=== PATIENT | female | born 1930 | race Caucasian/White ===

== ENCOUNTER → 2017-05-16 | Outpatient (CLI) | payer MEDICARE, OTHER ==
[~2017-05-16] MED LIST: /WARF3TA; ACETGRA; BABY81CH; BENA20TA2; COUMADIN; FERR325T; LASI20TA; LEVO125T6; LOPR50TA; [UNRECOGNIZED DRUG - OTHER]
--- NOTE | 2017-05-16 15:27 | REPMRS ---
Patient History The patient states she had a clinical breast exam in February 2017. Patient is postmenopausal. Family history of breast cancer in mother at age 40, unknown cancer in mother at age 70, unknown cancer in maternal aunt at age 50, breast cancer in maternal aunt at age 40, unknown cancer in maternal unspecified, endometrial cancer in daughter at age 50 or over, and breast cancer in daughter at age 61. Digital Mammo Screening Bilat: May 16, 2017 - Exam #: [id number] Bilateral CC and MLO view(s) were taken. Technologist: Brianna Moreno, Technologist Prior study comparison: May 01, 2016, bilateral digital mammo screening bilat performed at [facility]. March 21, 2014, bilateral bilat screen digital mammo, performed at [facility] ([facility]). FINDINGS: There are scattered fibroglandular densities. There has been no change in the appearance of the mammogram from the prior studies. There is a mild amount of residual fibroglandular tissue which is fairly symmetric. There is no interval development of dominant mass, architectural distortion, or clustered microcalcification suggestive of malignancy. ASSESSMENT: BI-RADS/ACR category 1 mammogram. Negative. Recommendation Routine screening mammogram in 1 year (for women over age 40). This mammogram was interpreted with the aid of an FDA-approved computer-aided dectection system. Electronically Signed By: Marcelo Pagan MD 05/16/17 [id number]
== END ==
LOC: M RAD 14:12
PROVIDERS: ATTEND Nurse Practitioner Adult Health
DX: Z12.31 Encounter for screening mammogram for malignant neoplasm of breast (principal)